=== PATIENT | male | born 1960 | race Caucasian/White ===

== ENCOUNTER 2018-12-14 11:58 | Emergency (ER) | payer OTHER, SELFPAY ==
[2018-12-14 12:08] VITALS: BP 180/113; PULSE 95; RESP 18; TEMP 36.3; O2SAT 98
--- NOTE | 2018-12-14 13:15 | PC.NURSE ---
pt AAOx3, ambulatory. Describes a Sciatic like pain from R back down R leg. +CSM. urine obtained and sent. NAD
[2018-12-14 13:33] LABS: Bacteria Urine None Seen; RBC Urine None Seen (0-5/HPF); WBC Urine None Seen (0-5/HPF)
[2018-12-14 13:39] LABS: Appearance Urine UA CLEAR; Bilirubin Urine UA NEGATIVE (NEGATIVE); Color Urine UA YELLOW; Glucose Urine UA NEGATIVE (Negative); Ketones Urine UA NEGATIVE (NEGATIVE); Leukocyte Esterase Urine UA NEGATIVE (NEGATIVE); Nitrite Urine UA NEGATIVE (Negative); Occult Blood Urine UA NEGATIVE (Negative); Protein Urine UA NEGATIVE (Negative); Specific Gravity Urine UA 1.015 (1.000-1.035); Urobilinogen Urine UA 0.2 E.U./dL (0.2); pH Urine UA 6.5 (4.5-8.0)
--- NOTE | 2018-12-14 13:42 | DI.RAD.S_ITS ---
PROCEDURE: XR LUMBAR SPINE 2-3V INDICATIONS: low back pain TECHNIQUE: 3 views of the lumbar spine were acquired. COMPARISON: None. FINDINGS: Bones: 5 [id number] vertebrae are present. There is normal retrolisthesis at L3-4 and L4-5 levels. No acute vertebral body compression fractures. Degenerative disc disease and bilateral facet arthrosis at L3-4 through L5-S1 levels are seen. No suspicious bony lesions. Soft tissues: Overlying bowel gas pattern is normal. No suspicious soft tissue calcifications. IMPRESSION: Degenerative disc disease in lower lumbar spine. Minimal retrolisthesis at L3-4 and L4-5 levels. No acute compression fracture. Dictated by: Deshaun Marion M.D. on 12/14/2018 at 14:00 Approved by: Deshaun Marion M.D. on 12/14/2018 at 14:01
[2018-12-14 13:43] LABS: Culture Indicated Urine Cult Not Indicated; Urine Comments Microscopic Normal
[2018-12-14] MEDS: KETOROLAC 60 MG/2 ML VIAL IM (14:07)
[2018-12-14] MEDS: LIDOCAINE PATCH 1 EACH ADH..PATCH TOP (14:07)
[2018-12-14] MEDS: predniSONE 20 MG TABLET 60 MG PO (14:08)
[2018-12-14 15:05] VITALS: BP 149/93; PULSE 87; O2SAT 98
--- NOTE | 2018-12-14 17:13 | ED_ITS ---
HPI - Extremity Problem <LESLEE Phelps- - Last Filed: 12/14/18 17:18> General Chief complaint: Extremity Problem,Nontraumatic Stated complaint: right side pain Time Seen by Provider: 12/14/18 13:20 Source: patient Mode of arrival: Ambulatory Limitations: no limitations History of Present Illness HPI Narrative: The patient is a 58-year-old male with history of sciatica denies illicit drug use who presents with a chief complaint of right-sided pain. He states he has pain in his right lower back that radiates down to behind his right knee. He describes as electric and burning. He denies any trauma. Denies any incontinence of bowel or bladder. He denies any precipitating factors. He has tried his usual [place] which has not helped. He denies any numbness of his extremities. Denies any weakness. He has not followed up with primary care provider. Related Data Home Medications Medication Instructions Recorded Confirmed duloxetine 60 mg PO DAILY #0 05/19/16 12/14/18 hydrocodone-acetaminophen 1 tab PO Q6H PRN #0 05/19/16 dextroamphetamine-amphetamine 20 mg PO BID 12/14/18 12/14/18 sildenafil 50 - 100 mg PO DAILY PRN 12/14/18 12/14/18 Previous Rx's Medication Instructions Recorded ketorolac 10 mg PO TID PRN #20 tab 12/14/18 lidocaine 1 patch TOP DAILY #15 each 12/14/18 prednisone 50 mg PO DAILY #5 tab 12/14/18 Allergies Allergy/AdvReac Type Severity Reaction Status Date / Time iodine [IODINE] Allergy Unknown Unverified 07/06/17 12:42 Review of Systems <ARON Phelps - Last Filed: 12/14/18 17:18> Review of Systems Narrative: GENERAL: Denies chills, fatigue, malaise, fever, sweats. HEENT: Denies sinus pain, ear pain, sore throat, difficulty swallowing, dizziness. RESPIRATORY: Denies dyspnea, cough, wheezing, hemoptysis, sputum. CARDIOVASCULAR: Denies chest pain, palpitations, orthopnea, edema, GASTROINTESTINAL: Denies nausea, vomiting, abdominal pain, diarrhea, constipation, melena. : Denies dysuria, frequency, incontinence, hematuria, urinary retention. MUSCULOSKELETAL: See HPI SKIN: Denies rash, skin lesions, or other NEUROLOGIC: Denies weakness, headache, numbness, change in speech, confusion, seizures, incoordination. PSYCHIATRIC: No concerning psychosocial issues. 12 point review of systems is negative except for those stated above PFSH <LESLEE Phelps-BC - Last Filed: 12/14/18 17:18> Surgical History (Updated 07/26/17 @ 06:12 by Shira Falcon DO) History of third molar tooth extraction Family History (Updated 06/13/17 @ 00:00 by Conversion Provider) Brother Cancer Hypertension Father Hypertension Family History (Updated 06/13/17 @ 00:00 by Conversion Provider) Brother Cancer Hypertension Father Hypertension Exam <ARON PhelpsBC - Last Filed: 12/14/18 17:18> Narrative Exam Narrative: GENERAL: This is a well-nourished, well-developed patient, no acute distress HEAD: Atraumatic. Normocephalic. No temporal or scalp tenderness. EYES: Pupils equal round and reactive. Extraocular motions intact. No scleral icterus. No injection or drainage. ENT: Nose without bleeding, purulent drainage or septal hematoma. Throat without erythema, tonsillar hypertrophy or exudate. Uvula midline. Airway patent. NECK: Trachea midline. No JVD or lymphadenopathy. Supple, nontender, no meningeal signs. CARDIOVASCULAR: Regular rate and rhythm without murmurs, gallops, or rubs. RESPIRATORY: Clear to auscultation. Breath sounds equal bilaterally. No wheezes, rales, or rhonchi. No cough. No increased respiratory effort. No accessory muscle use. GASTROINTESTINAL: Abdomen soft, non-tender, nondistended. No hepato- splenomegaly, or palpable masses. No guarding. EXTREMITIES: No clubbing, cyanosis, or edema. No joint tenderness, effusion, or edema noted. BACK: Nontender without deformity or crepitance. No flank tenderness. No pain to palpation of CT or L-spine. No palpable deformities. NEURO: AOx3. Stable gait. Strength is equal upper and lower extremities bilaterally. No gross cranial nerve deficit. Clear speech. SKIN: No rash or erythema. No erythema ecchymosis or rash noted on lower back. Initial Vital Signs Initial Vital Signs: Vital Signs Temperature 97.3 F L 12/14/18 12:08 Pulse Rate 95 H 09/19/19 12:08 Respiratory Rate 18 12/14/18 12:08 Blood Pressure 180/113 H 12/14/18 12:08 Pulse Oximetry 98 12/14/18 12:08 <Basia Baer MD - Last Filed: 12/14/18 19:44> Initial Vital Signs Initial Vital Signs: Vital Signs Temperature 97.3 F L 12/14/18 12:08 Pulse Rate 95 H 12/14/18 12:08 Respiratory Rate 18 12/14/18 12:08 Blood Pressure 180/113 H 12/14/18 12:08 Pulse Oximetry 98 12/14/18 12:08 Course <LESLEE Phelps-CHATA - Last Filed: 12/14/18 17:18> Orders Ordered: ED Orders 12/14/18 13:09 Urinalysis and Microscopic Stat 12/14/18 13:42 XR lumbar spine 2-3V Stat Discontinued Medications Ketorolac Tromethamine (Toradol) 60 mg IM NOW ONE Stop: 12/14/18 13:43 Last Admin: 12/14/18 14:07 Dose: 60 mg Documented by: GUANACO Lidocaine (Lidoderm) 1 each TOP NOW ONE Stop: 12/14/18 13:43 Last Admin: 12/14/18 14:07 Dose: 1 each Documented by: GUANACO Prednisone (Deltasone) 60 mg PO NOW ONE Stop: 12/14/18 13:43 Last Admin: 12/14/18 14:08 Dose: 60 mg Documented by: GUANACO Vital Signs Vital signs: Vital Signs - 8 hr 12/14/18 12:08 12/14/18 15:05 Temperature 97.3 F L Pulse Rate 95 H 87 Respiratory Rate 18 Blood Pressure 180/113 H Blood Pressure [Left Arm] 149/93 H Pulse Oximetry 98 98 <Basia Baer MD - Last Filed: 12/14/18 19:44> Orders Ordered: ED Orders 12/14/18 13:09 Urinalysis and Microscopic Stat 12/14/18 13:42 XR lumbar spine 2-3V Stat Discontinued Medications Ketorolac Tromethamine (Toradol) 60 mg IM NOW ONE Stop: 12/14/18 13:43 Last Admin: 12/14/18 14:07 Dose: 60 mg Documented by: GUANACO Lidocaine (Lidoderm) 1 each TOP NOW ONE Stop: 12/14/18 13:43 Last Admin: 12/14/18 14:07 Dose: 1 each Documented by: GUANACO Prednisone (Deltasone) 60 mg PO NOW ONE Stop: 12/14/18 13:43 Last Admin: 12/14/18 14:08 Dose: 60 mg Documented by: GUANACO Vital Signs Vital signs: Vital Signs - 8 hr 12/14/18 12:08 12/14/18 15:05 Temperature 97.3 F L Pulse Rate 95 H 87 Respiratory Rate 18 Blood Pressure 180/113 H Blood Pressure [Left Arm] 149/93 H Pulse Oximetry 98 98 MDM - Extremity (Nontraumatic) <CA Phelps - Last Filed: 12/14/18 17:18> Lab Data Labs: Lab Results 12/14/18 Range/Units 13:09 Urine Color Yellow Urine Appearance Clear Urine pH 6.5 (4.5-8.0) Ur Specific Ages [place] 1.015 (1.000-1.035) Urine Protein Negative (Negative) Urine Glucose (UA) Negative (Negative) g/dL Urine Ketones Negative (NEGATIVE) Urine Occult Blood Negative (Negative) Urine Nitrate Negative (Negative) Urine Bilirubin Negative (NEGATIVE) Urine Urobilinogen 0.2 (0.2) E.U./dL Ur Leukocyte Esterase Negative (NEGATIVE) Urine RBC None seen (0-5/HPF) Urine WBC None seen (0-5/HPF) Urine Bacteria None seen (None) Ur Culture Indicated? Cult not indicated Micro UA Comment Microscopic normal Imaging Data Lumbar x-ray: Radiologist's impression: [address] [address] XRay Report Signed Patient: Nilay Griggs BMR#: [id number] : [id number]:[id number] Age/Sex: 58 / MDate of Service: 12/14/18 Loc: ED Accession Number: [id number] Procedure: XR lumbar spine 2-3V Ordering Provider: Bethany Kessler PROCEDURE: XR LUMBAR SPINE 2-3V INDICATIONS: low back pain TECHNIQUE: 3 views of the lumbar spine were acquired. COMPARISON: None. FINDINGS: Bones: 5 [id number] vertebrae are present. There is normal retrolisthesis at L3-4 and L4-5 levels. No acute vertebral body compression fractures. Degenerative disc disease and bilateral facet arthrosis at L3-4 through L5-S1 levels are seen. No suspicious bony lesions. Soft tissues: Overlying bowel gas pattern is normal. No suspicious soft tissue calcifications. IMPRESSION: Degenerative disc disease in lower lumbar spine. Minimal retr olisthesis at L3-4 and L4-5 levels. No acute compression fracture. Dictated by: Deshaun Marion M.D. on 12/14/2018 at 14:00 Approved by: Deshaun Marion M.D. on 12/14/2018 at 14:01 [facility] Narrative Medical decision making narrative: The patient is a 58-year-old male who presents with a chief complaint of sciatica like pain on his right side. X-rays were obtained which showed no acute etiology of his lumbar spine. He has no red flag symptoms of incontinence of bowel incontinence of bladder saddle anesthesia. I discussed coming back to the ER if any of these were to occur. The patient was treated in the emergency department with Toradol, prednisone and a lidocaine patch. He felt much improved after this. I gave him prescriptions of these to take home. I encouraged to follow up with primary care provider. Discussed coming back to the ER for any of the red flag symptoms or acute concerns. Patient has no questions or concerns upon discharge and states understanding of this plan of care as well as return precautions. <Basia Baer MD - Last Filed: 12/14/18 19:44> Lab Data Labs: Lab Results 12/14/18 Range/Units 13:09 Urine Color Yellow Urine Appearance Clear Urine pH 6.5 (4.5-8.0) Ur Specific Ages [place] 1.015 (1.000-1.035) Urine Protein Negative (Negative) Urine Glucose (UA) Negative (Negative) g/dL Urine Ketones Negative (NEGATIVE) Urine Occult Blood Negative (Negative) Urine Nitrate Negative (Negative) Urine Bilirubin Negative (NEGATIVE) Urine Urobilinogen 0.2 (0.2) E.U./dL Ur Leukocyte Esterase Negative (NEGATIVE) Urine RBC None seen (0-5/HPF) Urine WBC None seen (0-5/HPF) Urine Bacteria None seen (None) Ur Culture Indicated? Cult not indicated Micro UA Comment Microscopic normal Discharge Plan Departure Patient Disposition: Home Clinical Impression: Back pain Qualifiers: Back pain location: low back pain Chronicity: acute Back pain laterality: right Sciatica presence: with sciatica Sciatica laterality: sciatica of right side Qualified Code(s): M54.41 - Lumbago with sciatica, right side Discharge Date/Time: 12/14/18 15:18 Instructions: Back Pain (Alternative Therapy), DI for Low Back Pain, DI for Back Pain With Sciatica Activity Restrictions/Additional Instructions: Please come back to the emergency department for any of the red flag symptoms that we spoke about including incontinence of bowel, incontinence of bladder or numbness in your groin. Do not combine the ketorolac prescription with ibuprofen or any other NSAIDs. Please follow up with primary care provider in the next few days. Prescriptions: New lidocaine 5 % adhesive patch,medicated 1 patch TOP DAILY Qty: 15 RF: 0 ketorolac 10 mg tablet 10 mg PO TID PRN (Reason: pain) Qty: 20 RF: 0 prednisone 50 mg tablet 50 mg PO DAILY Qty: 5 RF: 0 No Action hydrocodone-acetaminophen 5 MG/325 MG tablet 1 tab PO Q6H PRN (Reason: pain) Qty: 0 RF: 0 duloxetine 60 MG capsule,delayed release(DR/EC) 60 mg PO DAILY Qty: 0 RF: 0 sildenafil 100 mg tablet 50 - 100 mg PO DAILY PRN (Reason: Sexual Activity) RF: 0 dextroamphetamine-amphetamine 20 mg tablet 20 mg PO BID RF: 0 Referrals: Shira Falcon DO [Primary Care Provider] -
== END 2018-12-14 15:18 | disposition home or self-care (01) ==
PROVIDERS: Emergency Medicine; Emergency Provider Nurse Practitioner Family; PCP Family Medicine
DX: M54.41 Lumbago with sciatica, right side (principal)
CPT/HCPCS: 72100; 81001; 96372; 99282; 99283; J1885

== ENCOUNTER → 2018-12-28 05:55 | Outpatient (CLI) | payer OTHER, SELFPAY ==
--- NOTE | 2018-12-28 | DI.MRI.S_ITS ---
PROCEDURE: MR LUMBAR SPINE WO CON INDICATIONS: Lumbago with sciatica, left side TECHNIQUE: Noncontrast sagittal T1 spin echo and T2 fast echo, sagittal STIR, axial T1 and T2 fast spin echo through the lumbar spine. In cases with scoliosis, additional coronal T2 fast spin echo may be performed. COMPARISON: [facility], CR, XR LUMBAR SPINE 2-3V, 12/14/2018, 13:44. FINDINGS: Image quality: Excellent. Alignment and Curvature: 5 lumbar type vertebral bodies are present by plain film. There is mild grade 1 retrolisthesis of L1 on L2, L2 on L3, L3 on L4, and L4 on L5. There is mild grade 1 anterolisthesis of L5 on S1. Bone Marrow: Marrow is of normal overall signal. No acute vertebral body compression fractures. Bilateral L5-S1 pars interarticularis defects are present. There is mild reactive signal within the endplates adjacent to the T12-L1, L1-L2, L2-L3, L3-L4, L4-L5, and L5-S1 intervertebral discs. Spinal Cord: Conus medullaris terminates at the L1-L2 disc space level. Visualized cord demonstrates normal signal and size. Paraspinous Soft Tissues: No paravertebral masses. T12-L1: Left paracentral disc extrusion which extends superiorly within the left anterior epidural space. Mild facet and ligamentum flavum hypertrophy. Mild canal stenosis. No foraminal stenosis. L1-L2: Mild disc height loss and desiccation. Mild diffuse disc bulge with small superimposed broad-based right posterolateral protrusion. Mild bilateral facet and ligament flavum hypertrophy. Mild epidural lipomatosis. Mild canal stenosis. Mild right foraminal stenosis. No left foraminal stenosis. L2-L3: Mild disc height loss and desiccation. Mild diffuse disc bulge. Small superimposed left far lateral broad-based protrusion. Mild facet and ligament flavum hypertrophy. Mild epidural lipomatosis. Mild canal stenosis. Mild left greater than right foraminal stenosis. L3-L4: Mild disc height loss and desiccation. Mild diffuse disc bulge with superimposed right paracentral disc extrusion which extends inferiorly within the right anterior epidural space and lateral recess. Mild bilateral facet hypertrophy. Mild canal stenosis. Mild right greater than left foraminal stenosis. Compression of the right L4 nerve root at the mid/superior L4 level. L4-L5: Mild disc height loss and desiccation. Moderate diffuse disc bulge. Mild bilateral facet hypertrophy. Mild canal stenosis. Mild bilateral foraminal stenosis. L5-S1: Severe disc height loss and desiccation. Mild diffuse disc bulge. There is a 7 mm low T2 intensity focus within the right anterior epidural space at the lower L5 level, possibly representing an extruded disc fragment. Bilateral facet hypertrophy. No canal stenosis. Severe bilateral foraminal stenosis with bilateral L5 nerve root compression. IMPRESSION: 1. Multilevel degenerative disc and facet disease, as well as ligamentum flavum hypertrophy and epidural lipomatosis. 2. Grade I isthmic spondylolisthesis at L5-S1. 3. Mild multilevel canal stenoses. 4. Multilevel foraminal stenoses, worst at L5-S1 where there is bilateral L5 nerve root compression. 5. Right L3-L4 disc extrusion, impinging upon the right L4 nerve root as described above. 6. Recommend correlation with clinical symptoms to ascertain relevance of this finding. 7. Possible small extruded disc fragment within the right anterior epidural space at the L5-S1 level. Dictated by: Wagner Coleman M.D. on 12/28/2018 at 11:24 Approved by: Wagner Coleman M.D. on 12/28/2018 at 11:30
== END ==
PROVIDERS: PCP Family Medicine; Visit Provider Physician Assistant
DX: M47.26 Other spondylosis with radiculopathy, lumbar region (principal); M47.27 Other spondylosis with radiculopathy, lumbosacral region; M51.16 Intervertebral disc disorders with radiculopathy, lumbar region; M51.17 Intervertebral disc disorders with radiculopathy, lumbosacral region; M48.061 Spinal stenosis, lumbar region without neurogenic claudication; M48.07 Spinal stenosis, lumbosacral region; E88.2 Lipomatosis, not elsewhere classified
CPT/HCPCS: 72148

== ENCOUNTER 2019-08-07 19:27 | Emergency (ER) | payer OTHER, SELFPAY ==
[2019-08-07 19:37] VITALS: BP 156/95; PULSE 79; RESP 14; TEMP 36.8; O2SAT 96
--- NOTE | 2019-08-07 19:59 | ED.DIZZY ---
HPI - Dizziness General Chief Complaint: Dizziness Stated Complaint: thinks vertigo issues Time Seen by Provider: 08/07/19 19:59 Source: patient Mode of arrival: Ambulatory History of Present Illness HPI Narrative: 59-year-old gentleman presents with acute vertigo associated with nausea but no actual vomiting. He had an episode similar to this approximately 8 years ago that had minimal workup in was treated with oral medications(he does not remember which oners) and he has been doing well since. Over the last few weeks he has noticed minor episodes of vertigo and over the course of today he has noticed severe vertigo with significant nausea. It is positionally worse but not specifically head turning. He has noticed a bit of tinnitus. No other focal neurologic symptoms. No headaches. No fever, cough, cold, chills, abdominal pain, diarrhea, swelling, rashes. Related Data Home Medications Medication Instructions Recorded Confirmed duloxetine 60 mg PO DAILY #0 05/19/16 12/14/18 hydrocodone-acetaminophen 1 tab PO Q6H PRN #0 05/19/16 dextroamphetamine-amphetamine 20 mg PO BID 12/14/18 12/14/18 sildenafil 50 - 100 mg PO DAILY PRN 12/14/18 12/14/18 Previous Rx's Medication Instructions Recorded ketorolac 10 mg PO TID PRN #20 tab 12/14/18 prednisone 50 mg PO DAILY #5 tab 12/14/18 diclofenac sodium 3 % topical gel 1 applictn TOP BID #100 gram 01/05/19 lidocaine 5 % topical patch 1 patch TOP DAILY #15 each 01/05/19 albuterol sulfate 90 mcg/actuation 1 inh INHALATION Q4-6H PRN #18 gram 05/10/19 aerosol inhaler azithromycin 250 mg tablet See Rx Instructions PO .COMPLEX #6 05/10/19 tab benzonatate 100 mg capsule 100 mg PO BEDTIME #20 cap 05/10/19 meclizine 25 mg PO TID PRN #30 tab 08/07/19 ondansetron 4 mg PO Q8H PRN #20 tab 08/07/19 Allergies Allergy/AdvReac Type Severity Reaction Status Date / Time iodine [IODINE] Allergy Unknown Unverified 07/06/17 12:42 Review of Systems Review of Systems Narrative: Pertinent positive and negative findings as per HPI Remainder of review of systems is otherwise unremarkable for Constitutional: chills, weakness ENT: No sore throat, neck pain, ear pain CV: Chest pain, palpitations, dyspnea on exertion Respiratory: Cough, wheeze, dyspnea GI: diarrhea, change in bowel habits, black or bloody stools : Dysuria, hematuria, flank pain MS: Muscle weakness, numbness, joint swelling or warmth Skin: Rashes, nonhealing lesions Neuro: Syncope, tingling Psych: Depression, anxiety, suicidal ideation Endocrine: Fatigue, heat or cold intolerance, very dry skin Heme: Easy bruising or bleeding Allergy: Seasonal rhinorrhea, itchy eyes Patient History Medical History Attention deficit disorder of adult with hyperactivity (06/10/17) Depression (06/10/17) Lumbago with sciatica, right side (Acute 10/2018) Surgical History History of third molar tooth extraction Family History Brother Cancer Hypertension Father Hypertension Social History Smoking Status: Former smoker Smoking Status: Former smoker alcohol intake frequency: holidays/special occasions only Substance Use Type: does not use Exam Narrative Exam Narrative: General: Healthy appearing, in no acute distress. Able to give a complete and coherent history. Well-nourished well-developed, more comfortable lying flat with his eyes closed. HEENT: Moist mucous membranes, normal sclera with reactive pupils, no nystagmus and no evoked nystagmus with head twisting. Tympanic membranes are easily viewed and both within normal limits Neck: No JVD, supple Respiratory: Lungs are clear to auscultation, no wheezing no rales no rhonchi. Full and symmetrical air movement Cardiac: Regular rate and rhythm no murmurs no bruits Abdomen: Soft nontender good bowel tones, no flank pain Skin: Warm and dry, no rashes Neurologic: Grossly neurologically intact with no obvious asymmetries or abnormalities, no hyper reflexia Extremities: No trauma, well perfused Psych: Cooperative, appropriate insight and affect Initial Vital Signs Initial Vital Signs: Vital Signs Temperature 98.2 F 05/12/20 19:37 Pulse Rate 79 08/07/19 19:37 Respiratory Rate 14 08/07/19 19:37 Blood Pressure 156/95 H 08/07/19 19:37 Pulse Oximetry 96 08/07/19 19:37 Course Orders Ordered: ED Orders 08/07/19 20:13 EKG-12 Lead Stat 08/07/19 20:20 Complete Blood Count AUTO DIFF Stat Comprehensive Metabolic Panel Stat Troponin I Stat Discontinued Medications Sodium Chloride (Normal Saline 0.9%) 1,000 mls @ 1,000 mls/hr IV BOLUS ONE Stop: 08/07/19 21:12 Last Infusion: 08/07/19 21:14 Dose: 1,000 mls/hr Documented by: Admin: 08/07/19 20:31 Dose: 1,000 mls/hr Documented by: JANETH Meclizine HCl (Antivert) 25 mg PO NOW ONE Stop: 08/07/19 20:14 Last Admin: 08/07/19 20:31 Dose: 25 mg Documented by: JANETH Ondansetron HCl (Zofran) 4 mg IV NOW ONE Stop: 08/07/19 20:14 Last Admin: 08/07/19 20:31 Dose: 4 mg Documented by: JANETH Ondansetron HCl (Zofran Odt Prepack) 1 bottle MIS SEEINSTR ONE Stop: 08/07/19 22:19 Last Admin: 08/07/19 22:24 Dose: 1 bottle Documented by: SLIME Vital Signs Vital signs: Vital Signs - 8 hr 08/07/19 19:37 08/07/19 21:35 08/07/19 22:32 Temperature 98.2 F Pulse Rate 79 80 79 Respiratory Rate 14 18 18 Blood Pressure 156/95 H 144/90 H Blood Pressure [Left Arm] 148/90 H Pulse Oximetry 96 100 99 MDM - Dizziness Medical Records Attestation: I reviewed the patient's medical records. Lab Data Attestation: I reviewed the patient's lab results. Result diagrams: 08/07/19 20:20 08/07/19 20:20 Labs: Lab Results 08/07/19 08/07/19 Range/Units 20:20 20:20 WBC 9.0 (4.5-11.0) X10^3/uL RBC 4.85 (4.5-5.9) X10^6/uL Hgb 15.3 (13.5-17.5) g/dL Hct 44.4 (41-53) % MCV 91.6 (80-100) fL MCH 31.6 (26-34) PG MCHC 34.6 (30-36) % RDW 13.8 (11.6-14.8) % Plt Count 456 H (150-400) X10^3/uL Neut % (Auto) 66.6 (50-75) % Lymph % (Auto) 21.0 L (25-40) % [place] % (Auto) 6.6 (3-14) % Eos % (Auto) 5.0 H (2-4) % Baso % (Auto) 0.8 (0-2) % Neut # (Auto) 6000 (2244-7200) /uL Lymph # (Auto) 1900 (8971-1558) /uL [place] # (Auto) 600 (0-900) /uL Eos # (Auto) 400 (0-450) /uL Baso # (Auto) 100 (0-100) /uL Sodium 137 (137-145) mmol/L Potassium 3.9 (3.4-5.1) mmol/L Chloride 102 (98-107) mmol/L Carbon Dioxide 27 (22-32) mmol/L BUN 23 H (9-20) mg/dL Creatinine 0.67 (0.66-1.25) mg/dL Estimated GFR > 60.0 (>60) mL/min BUN/Creatinine Ratio 34.3 H (6-22) Glucose 132 H (70-100) mg/dL Calcium 9.7 (8.4-10.2) mg/dL Total Bilirubin 0.3 (0.2-1.3) mg/dL AST 22 (17-59) IU/L ALT 18 (<50) IU/L Alkaline Phosphatase 52 (38-126) U/L Troponin I < 0.012 (0.01-0.034) ng/mL Total Protein 7.4 (6.3-8.2) g/dL Albumin 4.3 (3.5-5.0) g/dL Globulin 3.1 (1.7-4.1) g/dL Albumin/Globulin Ratio 1.4 (1.0-2.8) Urine Dip Bedside Urine Glucose Negative Bedside Urine Bilirubin - Negative Bedside Urine Ketone - Negative Urine Specific [place] 1.015 Bedside Urine Occult Blood - Negative Bedside Urine pH 7.5 Bedside Urine Protein - Negative Bedside Urine Urobilinogen - Negative Bedside Urine Nitrite - Negative Bedside Urine Leukocytes - Negative Esterase ECG Data Attestation: I personally reviewed and interpreted this ECG as follows: Interpretation: Sinus rhythm No ischemic changes MDM Narrative Medical decision making narrative: 59-year-old gentleman presents with dizziness developing over the course of today. It is not specifically positional and he has no nystagmus to suggest benign positional vertigo. No signs or symptoms of stroke, infection or cardiac etiology. Improved with fluids Zofran and meclizine. Will continue with a prescription for meclizine and Zofran at home. If symptoms are not improving he is encouraged follow-up with his primary care physician or return to the emergency room if he feels that he has worsening Discharge Plan Departure Patient Disposition: Home Clinical Impression: Vertigo Discharge Date/Time: 08/07/19 22:32 Instructions: DI for Vertigo, DI for Dizziness-Nonvertigo Activity Restrictions/Additional Instructions: Thank you for coming in today I am glad that you are feeling better. In the emergency room you received IV Zofran to help with nausea as well as oral meclizine to help with vertigo. Prescriptions have been electronically sent to [facility]. Your workup in the emergency department was reassuring with no evidence of stroke, heart attack, infection or benign positional vertigo. I would encourage you to follow-up with your primary care physician. If this dizziness does not resolve additional studies and perhaps an MRI study may be appropriate. Further possibilities that could be causing this are an inner ear syndrome, vestibular neuritis (inflammation of the nerve to the ears) as well as Meniere's disease. I am glad that you are feeling better and I hope the dizziness resolves. Prescriptions: New meclizine 25 mg tablet 25 mg PO TID PRN (Reason: dizziness or vertigo) Qty: 30 RF: 0 ondansetron 4 mg tablet,disintegrating 4 mg PO Q8H PRN (Reason: nausea and vomiting) Qty: 20 RF: 0 No Action azithromycin 250 mg tablet See Rx Instructions PO .COMPLEX Qty: 6 RF: 0 albuterol sulfate 90 mcg/actuation HFA aerosol inhaler 1 inh INHALATION Q4-6H PRN (Reason: shortness of breath) Qty: 18 RF: 0 benzonatate 100 mg capsule 100 mg PO BEDTIME Qty: 20 RF: 0 hydrocodone-acetaminophen 5 MG/325 MG tablet 1 tab PO Q6H PRN (Reason: pain) Qty: 0 RF: 0 duloxetine 60 MG capsule,delayed release(DR/EC) 60 mg PO DAILY Qty: 0 RF: 0 lidocaine 5 % adhesive patch,medicated 1 patch TOP DAILY Qty: 15 RF: 1 diclofenac sodium 3 % gel 1 applictn TOP BID Qty: 100 RF: 0 sildenafil 100 mg tablet 50 - 100 mg PO DAILY PRN (Reason: Sexual Activity) RF: 0 dextroamphetamine-amphetamine 20 mg tablet 20 mg PO BID RF: 0 ketorolac 10 mg tablet 10 mg PO TID PRN (Reason: pain) Qty: 20 RF: 0 prednisone 50 mg tablet 50 mg PO DAILY Qty: 5 RF: 0 Referrals: Shira Falcon DO [Primary Care Provider] -
[2019-08-07 20:27] LABS: Add Manual Diff / Slide Review NO; Basophils Absolute Auto 100 /uL (0-100); Basophils Percent Auto 0.8 % (0-2); Eosinophils Absolute Auto 400 /uL (0-450); Hematocrit 44.4 % (41-53); Hemoglobin 15.3 g/dL (13.5-17.5); Lymphocytes Absolute Auto 1900 /uL (1100-4500); Mean Corpuscular HGB Conc 34.6 % (30-36); Mean Corpuscular Hemoglobin 31.6 PG (26-34); Mean Corpuscular Volume 91.6 fL (80-100); Monocytes Absolute Auto 600 /uL (0-900); Monocytes Percent Auto 6.6 % (3-14); Neutrophils Absolute Auto 6000 /uL (1500-7000); Neutrophils Percent Auto 66.6 % (50-75); Platelet Count 456 X10^3/uL (150-400); Red Blood Cell Count 4.85 X10^6/uL (4.5-5.9); Red Cell Distribution Width 13.8 % (11.6-14.8)
[2019-08-07] MEDS: ONDANSETRON 4 MG/2 ML INJ IV (20:31)
[2019-08-07] MEDS: SODIUM CHLORIDE 0.9% 1,000 ML 1000 ML IV (20:31)
[2019-08-07] MEDS: MECLIZINE HCL 12.5 MG TABLET 25 MG PO (20:31)
[2019-08-07 20:45] LABS: Alanine Aminotransferase 18 IU/L (<50); Albumin 4.3 g/dL (3.5-5.0); Albumin Globulin Ratio 1.4 (1.0-2.8); Alkaline Phosphatase 52 U/L (38-126); Aspartate Aminotransferase 22 IU/L (17-59); BUN Creatinine Ratio 34.3 (6-22); Bilirubin Total 0.3 mg/dL (0.2-1.3); Blood Urea Nitrogen 23 mg/dL (9-20); Calcium 9.7 mg/dL (8.4-10.2); Carbon Dioxide 27 mmol/L (22-32); Chloride 102 mmol/L (98-107); Estimated Glomerular Filt Rate > 60.0 mL/min (>60); Globulin 3.1 g/dL (1.7-4.1); Glucose 132 mg/dL (70-100); HEMOLYSIS < 15 (0-50); Potassium 3.9 mmol/L (3.4-5.1); Sodium 137 mmol/L (137-145); Total Protein 7.4 g/dL (6.3-8.2)
[2019-08-07 20:57] LABS: Troponin I < 0.012 ng/mL (0.01-0.034)
[2019-08-07 21:35] VITALS: BP 148/90; PULSE 80; RESP 18; O2SAT 100
[2019-08-07] MEDS: ONDANSETRON 4 MG ODT PREPACK 1 BOTTLE MISC (22:24)
[2019-08-07 22:32] VITALS: BP 144/90; PULSE 79; RESP 18; O2SAT 99
== END 2019-08-07 22:32 | disposition home or self-care (01) ==
PROVIDERS: Emergency Provider Emergency Medicine; PCP Family Medicine
DX: R42 Dizziness and giddiness (principal)
CPT/HCPCS: 80053; 81003; 84484; 85025; 93005; 96361; 96374; 99284; J2405

== ENCOUNTER → 2019-11-03 08:11 | Outpatient (CLI) | payer OTHER, SELFPAY ==
[2019-11-03 09:12] LABS: Add Manual Diff / Slide Review NO; Basophils Absolute Auto 100 /uL (0-100); Basophils Percent Auto 1.3 % (0-2); Eosinophils Absolute Auto 200 /uL (0-450); Hematocrit 43.8 % (41-53); Hemoglobin 15.5 g/dL (13.5-17.5); Lymphocytes Absolute Auto 1700 /uL (1100-4500); Lymphocytes Percent Auto 28.6 % (25-40); Mean Corpuscular HGB Conc 35.3 % (30-36); Mean Corpuscular Volume 90.8 fL (80-100); Monocytes Absolute Auto 400 /uL (0-900); Monocytes Percent Auto 7.2 % (3-14); Neutrophils Absolute Auto 3500 /uL (1500-7000); Neutrophils Percent Auto 58.9 % (50-75); Platelet Count 381 X10^3/uL (150-400); Red Blood Cell Count 4.82 X10^6/uL (4.5-5.9); Red Cell Distribution Width 13.5 % (11.6-14.8)
[2019-11-03 09:40] LABS: Alanine Aminotransferase 23 IU/L (<50); Albumin 4.3 g/dL (3.5-5.0); Albumin Globulin Ratio 1.4 (1.0-2.8); Alkaline Phosphatase 57 U/L (38-126); Aspartate Aminotransferase 24 IU/L (17-59); BUN Creatinine Ratio 30.4 (6-22); Bilirubin Total 0.6 mg/dL (0.2-1.3); Blood Urea Nitrogen 21 mg/dL (9-20); Calcium 9.3 mg/dL (8.4-10.2); Carbon Dioxide 28 mmol/L (22-32); Chloride 102 mmol/L (98-107); Cholesterol 219 mg/dL (140-199); Estimated Glomerular Filt Rate > 60.0 mL/min (>60); Globulin 3.1 g/dL (1.7-4.1); Glucose 111 mg/dL (70-100); HDL Cholesterol 41 mg/dL (40-60); HEMOLYSIS 21 (0-50); LDL Cholesterol Calculated 147 mg/dL (<100); Potassium 4.3 mmol/L (3.4-5.1); Sodium 135 mmol/L (137-145); Total Protein 7.4 g/dL (6.3-8.2); Triglycerides 155 mg/dL (35-150)
[2019-11-03 10:10] LABS: Prostate Specific Antigen 0.877 ng/mL (0.10-4.00)
== END ==
PROVIDERS: PCP Family Medicine; Referring Provider Family Medicine; Visit Provider Family Medicine
DX: Z12.5 Encounter for screening for malignant neoplasm of prostate (principal); D47.3 Essential (hemorrhagic) thrombocythemia; Z13.1 Encounter for screening for diabetes mellitus; Z13.220 Encounter for screening for lipoid disorders
CPT/HCPCS: 36415; 80053; 80061; 84153; 85025

== ENCOUNTER → 2019-11-04 08:44 | Outpatient (CLI) | payer OTHER, SELFPAY ==
[2019-11-05 21:56] LABS: COVID19 Sendout Not Detected (Not Detect)
== END ==
PROVIDERS: PCP Family Medicine; Visit Provider Physician Assistant
DX: Z11.59 Encounter for screening for other viral diseases (principal)
CPT/HCPCS: 87635

== ENCOUNTER 2020-02-11 16:45 | Outpatient (RCR) | payer OTHER, SELFPAY ==
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
--- NOTE | 2020-02-04 18:22 | PT.OPPOC ---
Physical, Occupational & Speech Therapy At [facility] Current Diagnoses Pain in right shoulder (02/04/20) Abnormal posture (02/04/20) Weakness (02/04/20) Visit Care Team Role Provider Type Shira Falcon DO Attending Provider Physician Primary Care Provider Referring Provider Specialty: [facility] Address: [address] [place] [address], [place], [place], [facility] Email: [email or web address] Plan Of Care PT-OP-T Assessment and Plan Start: 01/31/20 18:17 Freq: Status: Active Protocol: Document 02/04/20 16:50 [facility] (Rec: 02/04/20 17:51 [facility] [id number]) Physical Therapy Assessment Rehab Potential Rehabilitation Potential Good Evaluation Complexity Number of Personal Factors/Comorbidities 1-2 Number of Body Systems Impaired 4 or More Clinical Presentation at Evaluation Evolving Impairments Impairments Activity Tolerance,Functional Activities,Functional Mobility ,Pain,Posture,ROM,Soft Tissue Mobility,Strength Goals posture Short Term Goal (STG) Pt will have good desk set up to promote good posture and dec pain. STG Duration 03/05/20 Steam Shovel Operator Goal (LTG) Pt will score at least 4/5 on EFT to show improved scapular stability & postural stability in order to dec pain when pt lifts. LTG Duration 04/05/20 ROM Intermediate Goal (LTG) Pt will have full ROM Overhead actively as compared to L shoulder in order to be able to reach objects overhead. LTG Duration 04/05/20 strength Short Term Goal (STG) Pt will be indep w/ appropriate HEP to imrpove strength & ROM. STG Duration 03/05/20 Intermediate Goal (LTG) Pt will score 5/5 on all shoulder MMT to show improved shoulder stability to allow him to do all activities without inc pain. LTG Duration 04/05/20 quick dash Impairment 40.9 Short Term Goal (STG) pt will improve quick DASH to no more than 25 to show improved functional ability. STG Duration 03/05/21 Intermediate Goal (LTG) pt will improve quick DASH to no more than 5 to show improved functional ability. LTG Duration 04/05/20 Assessment Summary Assessment Pt presents with worsening of chronic R shoulder pain to the point of pain now being constant. He is limited with ability to reach and dec his activity based on avoiding pain. He even notes pain at his desk when at work. He has inc kyphosis & fwd shoulders & head and was educated on importance of posture with shoulder pain. He has overall weakness and dec ROM of R shoulder with positive testing for impingement and supraspinatus pain, which likely indicates R shoulder impingement. Pt woudld benefit form skilled PT to address GH mechanics along with improve posture, strength & R shoulder ROM in order to dec pain. Physical Therapy Plan Frequency and Duration Frequency of Treatment 2x/Week Duration of Treatment 2 months Plan of Care Start Date 02/04/20 Plan of Care End Date 04/05/20 Therapeutic Interventions Therapeutic Interventions Home Exercise Program,Joint Mobilizations,Manual Therapy, Neuromuscular Re-education, Patient/Caregiver Education, Self-Care/Home Management,Soft Tissue Mobilization,Taping, Therapeutic Activities, Therapeutic Exercises Modalities Cold Pack/Ice Massage,Electric Stimulation,Hot Packs, Infrared Therapy,Iontophoresis ,Ultrasound Next Visit Focus/Plan Next Note Type Treatment Note Next Visit Plan discuss desk set up, GH, AC, SC joint mobs, review row and sleep posture as needed, resisted ER, wall posture, doorway straight arm stretch, pec & UT STM Plan of Care Dates Plan of Care Start Date 02/04/20 Plan of Care End Date 04/05/20 Electronically Signed by: Theresa Olivares, PT 02/04/20 0894 Please Sign and Return: I have reviewed this Plan of Care and certify that the skilled therapy services above are required to meet the patient?s needs. Physician Signature Date Printed Name and Credentials Clinical Instructor Signature Printed Name and Credentials
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
--- NOTE | 2020-02-25 17:02 | PT-OP ANOTE ---
Pt called re: no show and message was left. THis is patient's last scheduled appointment so pt left message re: this and to call back to schedule further.
--- NOTE | 2020-04-08 08:37 | PT.OPDS ---
Current Diagnoses Pain in right shoulder (02/11/20) Abnormal posture (02/11/20) Weakness (02/11/20) Visit Care Team Role Provider Type Shira Falcon DO Attending Provider Physician Primary Care Provider Referring Provider Specialty: [facility] Address: [address] [place] [address], [place], [address] Email: [email or web address] Visit Number Visit Number 2 Discharge Summary PT-OP-T Assessment and Plan Start: 01/31/20 18:17 Freq: Status: Active Protocol: Document 04/08/20 08:36 [facility] (Rec: 04/08/20 08:37 [facility] [id number]) Physical Therapy Assessment Assessment Summary Assessment Pt has not been since since 2nd visit on 02/10 and no showed last scheduled appointment. He was called and left messages a couple times re: scheduling further appointments, but pt has not. He is d/c at this time d/t no longer attending PT. Physical Therapy Plan Discharge Physical Therapy Discharge Reasons No Longer Attending PT
== END 2020-05-05 15:45 ==
LOC: PHYS 16:45
PROVIDERS: PCP Family Medicine; Referring Provider Family Medicine; Visit Provider Family Medicine
DX: M25.511 Pain in right shoulder (principal); R53.1 Weakness; R29.3 Abnormal posture
CPT/HCPCS: 97110; 97140; 97162; 97530

== ENCOUNTER → 2020-07-24 11:23 | Outpatient (CLI) | payer OTHER, SELFPAY ==
[2020-07-24 13:36] LABS: Blood Urea Nitrogen 17 mg/dL (9-20); Calcium 9.3 mg/dL (8.4-10.2); Carbon Dioxide 25 mmol/L (22-32); Chloride 104 mmol/L (98-107); Estimated Glomerular Filt Rate > 60.0 mL/min (>60); Glucose 99 mg/dL (80-110); HEMOLYSIS < 15 (0-50); Potassium 3.8 mmol/L (3.4-5.1); Sodium 136 mmol/L (137-145)
== END ==
PROVIDERS: PCP Family Medicine; Referring Provider Family Medicine; Visit Provider Family Medicine
DX: N23 Unspecified renal colic (principal)
CPT/HCPCS: 36415; 80048

== ENCOUNTER → 2020-08-04 15:29 | Outpatient (CLI) | payer OTHER, SELFPAY ==
--- NOTE | 2020-08-04 15:30 | DI.US.S_ITS ---
PROCEDURE: US RENAL COMPLETE INDICATIONS: FLANK PAIN TECHNIQUE: Real-time scanning was performed of the kidneys and bladder, with image documentation. COMPARISON: None. FINDINGS: Kidneys: Kidneys are normal in size. Right kidney measures 9.5 cm long; left kidney measures 11.4 cm long. Right renal cortical thickness is 1.4 cm; left renal cortical thickness is 1.8 cm. Renal cortical echotexture is normal. No hydronephrosis or nephrolithiasis. No suspicious solid mass lesions. Bladder: Pre-void bladder volume is 94 mL. Post-void residual is 4.3 mL. Pre-void images demonstrate no intraluminal masses or stones. On pre-void images, bilateral ureteral jets are noted with color Doppler interrogation. (Of note, ureteral jets may not be detectable in up to 25% of cases due to insufficient differences in specific gravity between ureteral and bladder urine). Miscellaneous: No free pelvic fluid. IMPRESSION: 1. Grossly normal appearance of the kidneys bilaterally. Dictated by: Merrill Marsh [facility] Interpreted: Elizabeth Titus MD on 08/04/2020 at 17:03 Transcribed by: DAVID on 08/04/2020 at 17:04 Approved by: Elizabeth Titus M.D. on 08/05/2020 at 16:20
== END ==
PROVIDERS: PCP Family Medicine; Referring Provider Family Medicine; Visit Provider Family Medicine
DX: N23 Unspecified renal colic (principal)
CPT/HCPCS: 76770

== ENCOUNTER → 2021-02-28 08:56 | Outpatient (CLI) | payer OTHER, SELFPAY ==
[2021-02-28 10:57] LABS: Alanine Aminotransferase 34 IU/L (<50); Albumin 4.6 g/dL (3.5-5.0); Albumin Globulin Ratio 1.6 (1.0-2.8); Alkaline Phosphatase 60 U/L (38-126); Aspartate Aminotransferase 25 IU/L (17-59); Bilirubin Total 0.7 mg/dL (0.2-1.3); Blood Urea Nitrogen 18 mg/dL (9-20); Carbon Dioxide 30 mmol/L (22-32); Chloride 100 mmol/L (98-107); Cholesterol 248 mg/dL (140-199); Estimated Glomerular Filt Rate > 60.0 mL/min (>60); Globulin 2.9 g/dL (1.7-4.1); Glucose 109 mg/dL (80-110); HDL Cholesterol 46 mg/dL (40-60); HEMOLYSIS < 15 (0-50); LDL Cholesterol Calculated 181 mg/dL (<100); Potassium 5.1 mmol/L (3.4-5.1); Sodium 137 mmol/L (137-145); Total Protein 7.5 g/dL (6.3-8.2); Triglycerides 106 mg/dL (35-150)
[2021-02-28 11:26] LABS: Prostate Specific Antigen Scrn 0.533 ng/mL (0.1-4.0)
== END ==
PROVIDERS: PCP Family Medicine; Referring Provider Family Medicine; Visit Provider Family Medicine
DX: E78.5 Hyperlipidemia, unspecified (principal); I10 Essential (primary) hypertension; Z12.5 Encounter for screening for malignant neoplasm of prostate
CPT/HCPCS: 36415; 80053; 80061; G0103

== ENCOUNTER → 2021-04-02 08:58 | Outpatient (CLI) | payer OTHER, SELFPAY ==
[2021-04-02 10:01] LABS: COVID19 -Nasal RAPID Negative (Negative)
== END ==
PROVIDERS: PCP Family Medicine; Referring Provider Surgery; Visit Provider Surgery
DX: Z01.812 Encounter for preprocedural laboratory examination (principal); Z20.822 Contact with and (suspected) exposure to COVID-19
CPT/HCPCS: 87635; C9803

== ENCOUNTER 2021-04-03 08:02 | Day surgery (SDC) | payer OTHER, SELFPAY ==
[2021-04-03] VITALS (7 sets, daily range): BP systolic 114–133; BP diastolic 81–92; PULSE 80–86; RESP 10–16; TEMP 36.4; O2SAT 93–97; BMI 24.4
--- NOTE | 2021-04-03 | PATH_ITS ---
[facility] Accession Number: [id number] . 01 Material submitted: . PART A: colon - CECAL POLYPS PART B: rectum - RECTAL POLYP . 02 Diagnosis: A. Cecum, Polyps, Biopsies: Tubular adenoma in two of multiple fragments. . B. Rectum, Polyp, Biopsy: Tubular adenoma. MRV 04/06/2021 1448 Local . 02 Electronically signed: . Kimmy Tucker MD, Pathologist NPI- [id number] . 01 Gross description: . Part A: CECAL POLYPS: Received in formalin are 8 fragment(s) of tucker, soft tissue measuring 0.7 x 0.4 x 0.3 cm to 0.3 x 0.1 x 0.1 cm submitted entirely in 1 cassette(s) Part B: RECTAL POLYP: Received in formalin are multiple fragment(s) of tucker, soft tissue measuring 0.5 x 0.5 x 0.2 cm in aggregate submitted entirely in 1 cassette(s) /QBJ 04/04/2021 1236 Local . 02 Pathologist provided ICD-10: D12.0, D12.8 . 02 CPT . 801078, [id number] Performed at: 01 [facility] [address], [place], [place] [id number] MD kM Perez MD Phone: [phone] Performed at: 02 [facility] [place] [address] [place], [place] [id number] MD Kimmy Tucker MD Phone: [phone]
[2021-04-03] MEDS: LACTATED RINGERS 1,000 ML 84 ML IV (09:00)
[2021-04-03] MEDS: fentaNYL 250 MCG/5 ML INJ IV (09:32)
[2021-04-03] MEDS: MIDAZOLAM 5 MG/5 ML VIAL IV (09:33)
--- NOTE | 2021-04-03 09:35 | PM.HP.1 ---
History of Present Illness History of Present Illness Date Patient Seen: 04/03/21 Time Patient Seen: 09:35 Chief complaint: SCREENING COLONOSCOPY Narrative: 60-year-old man who is due for colonoscopy. His last was about 5 years ago and had polyps. He has no active complaints or issues. He is not aware of any family history of colon cancer. Patient History Medical History Attention deficit disorder of adult with hyperactivity (06/10/17) Depression (06/10/17) Essential hypertension Hyperlipidemia Obstructive sleep apnea syndrome Surgical History History of third molar tooth extraction Family & Social History Family History Brother Cancer Hypertension Father Hypertension Loud snoring Diabetes mellitus Alcohol abuse Social History: household members spouse Tobacco & Substance use: Smoking Status Never smoker alcohol intake frequency holiday/special occasion Substance Use Type does not use Meds Home Medications and Allergies Home Medications Medication Instructions Recorded Confirmed Type meclizine 25 mg tablet 25 mg PO TID PRN #30 tab 08/07/19 Rx ondansetron 4 mg disintegrating 4 mg PO Q8H PRN #20 tab 08/07/19 Rx tablet duloxetine 60 mg capsule,delayed 60 mg PO DAILY #0 08/14/19 04/03/21 History release hydrocodone 5 mg-acetaminophen 325 1 tab PO Q6H PRN #0 08/14/19 08/14/19 History mg tablet dextroamphetamine-amphetamine 20 20 mg PO DAILY tab 09/21/19 04/03/21 History mg tablet triamcinolone acetonide 0.1 % 1 applic TOPICAL BID #30 g 02/09/21 02/09/21 Rx topical ointment atorvastatin 10 mg tablet 10 mg PO BEDTIME #30 tab 03/10/21 04/03/21 Rx lisinopril 10 mg tablet 10 mg PO DAILY #30 tab 03/10/21 03/10/21 Rx Allergies Allergy/AdvReac Type Severity Reaction Status Date / Time iodine [IODINE] Allergy Unknown Verified 04/03/21 08:30 Exam Vital Signs (past 8 hours): - 04/03/21 08:35 Temperature 97.6 F Pulse Rate 86 Respiratory Rate 16 Blood Pressure 133/92 H Pulse Oximetry 97 Oxygen Delivery Method Room Air Const General: healthy appearing Eyes General: appearance normal, both eyes and all related structures Resp Effort & Inspection: normal respiratory effort Assessment & Plan Assessment and plan (1) Colon cancer screening: Status: Acute Plan We will proceed with colonoscopy today. We reviewed the risks and benefits and he would like to proceed. COVID-19 COVID-19 status: Negative Result date/Date tested (Pos, Neg/Pending): 04/02/21 Time Spent With Patient Critical Care time: I spent a total of [] minutes of critical care time on this patient's care today; this time is exclusive of procedural time.
--- NOTE | 2021-04-03 10:16 | PM.OP.COLON ---
Operative Date/Time/Diagnoses Date of procedure: 04/03/21 Time of procedure: 10:16 Pre-op diagnosis: Colon cancer screening Post-op diagnosis: same Procedure & Clinicians Study performed: Colonoscopy Same procedure as scheduled: Yes Indications: Colon cancer screening Surgeon: Иван Hinojosa Procedure Notes SCOAP/Timeout: Yes Procedure in detail: Procedure: The patient was brought to the endoscopy suite, placed in left lateral decubitus position. The patient was connected to monitoring devices. A time-out was performed. Sedation was administered. Once the patient was adequately sedated, a digital rectal exam was performed and was normal. The scope was then inserted and advanced to the cecum where the appendiceal orifice was identified and photographed. There were 2 small polyps in the cecum. One was about 3 mm and removed with forceps. The other was about 8 mm and removed with the hot snare. Because the hot snare did seem to completely come through the base of polyp we opened snare and released the tissue and went back in with the forceps to remove it piecemeal. There were a few small scattered diverticula in the sigmoid colon. There was a small polyp in the rectum removed with the cold snare. All of the visible polyp was removed. The scope was retroflexed in the rectum. No abnormalities were noted there. The scope was straightened and removed. The patient was awakened and brought to recovery. Versed: 6 mg Fentanyl: 150 mcg EBL: 10 mL Findings: Scattered sigmoid diverticula and cecal and rectal polyps. Scope withdrawal time: 16 Sedation minutes: 32 Findings: divertiulosis and polyp(s) Post-procedure Recommendations: Will call with biopsy results Disposition: PACU
== END 2021-04-03 10:55 | disposition home or self-care (01) ==
PROVIDERS: PCP Family Medicine; Referring Provider Surgery; Visit Provider Surgery
PROC: 0DJD8ZZ Inspection of Lower Intestinal Tract, Via Natural or Artificial Opening Endoscopic (ICD-10-PCS; CPT 45378; principal; 2021-04-03 09:45)
DX: Z12.11 Encounter for screening for malignant neoplasm of colon (principal); Z86.010 Personal history of colon polyps; I10 Essential (primary) hypertension; E78.5 Hyperlipidemia, unspecified; G47.33 Obstructive sleep apnea (adult) (pediatric); K57.30 Diverticulosis of large intestine without perforation or abscess without bleeding; D12.0 Benign neoplasm of cecum; D12.8 Benign neoplasm of rectum
CPT/HCPCS: 45385; 45380; 99152; 99153; J2250; J3010

== ENCOUNTER → 2021-04-04 10:33 | Outpatient (CLI) | payer OTHER, SELFPAY ==
[2021-04-04 12:33] LABS: TSH w/ Reflex to FT4 0.86 uIU/mL (0.47-4.68)
[2021-04-04 12:35] LABS: Testosterone 226 ng/dL (71.8-623)
== END ==
PROVIDERS: PCP Family Medicine; Referring Provider Physician Assistant; Visit Provider Physician Assistant
DX: R68.82 Decreased libido (principal)
CPT/HCPCS: 36415; 84403; 84443